=== PATIENT | male | born 1955 | race Caucasian/White ===

== ENCOUNTER 2024-12-26 06:19 | Emergency (ER) | payer MEDICARE, OTHER ==
[~2024-12-26] VITALS: Ht 180.3 cm; Wt 82.7 kg
[2024-12-26 06:37] VITALS: TEMP 97.1
[2024-12-26] MEDS: ASPIRIN 81 MG CHEWABLE TABLET PO ONE (07:00)
[2024-12-26] MEDS: TAMSULOSIN HCL 0.4 MG CAPSULE PO ONE (07:00)
[2024-12-26] MEDS: FOLIC ACID 1 MG TABLET PO ONE (07:00)
[2024-12-26] MEDS: LISINOPRIL 10 MG TABLET PO ONE (07:00)
[2024-12-26] MEDS: CYANOCOBALAMIN 500 MCG TABLET PO ONE (07:08)
[2024-12-26] MEDS: BuPROPion HCL XL 150 MG ER TABLET PO ONE (07:09)
[2024-12-26] MEDS: FLUoxetine HCL 20 MG CAPSULE PO ONE (07:09)
[2024-12-26 07:33] LABS: BASOPHILS % (AUTO) 0.4 % (0.0-2.0); EOSINOPHILS % (AUTO) 1.8 % (1.0-6.0); HEMATOCRIT 36.7 % (41-53); HEMOGLOBIN 12.6 g/dL (13.5-17.5); LYMPHOCYTES # (AUTO) 0.6 K/uL (1.0-4.8); LYMPHOCYTES % (AUTO) 9.9 % (22.0-44.0); MEAN CORPUSCULAR HEMOGLOBIN 28.9 pg (26.0-34.0); MEAN CORPUSCULAR HGB CONC 34.4 G/dL (31.0-37.0); MEAN CORPUSCULAR VOLUME 84 fL (80-100); MONOCYTES # (AUTO) 0.5 K/uL (0.1-1.0); MONOCYTES % (AUTO) 7.6 % (2.0-9.0); NEUTROPHILS # (AUTO) 4.8 K/uL (1.8-7.7); NEUTROPHILS % (AUTO) 80.3 % (40.0-70.0); PLATELET COUNT (AUTO) 348 K/uL (150-450); RED BLOOD CELL COUNT(AUTO) 4.37 MIL/uL (4.50-5.90)
[2024-12-26 07:41] LABS: ANION GAP 10 mmol/L (8-16); CALCIUM, TOTAL 9.2 mg/dL (8.8-10.5); CARBON DIOXIDE 25 mmol/L (22-29); CHLORIDE 95 mmol/L (98-107); GLOMERULAR FILTR. RATE CALC > 60 mL/min (>60); GLUCOSE,RANDOM 84 mg/dL (70-110); POTASSIUM 4.2 mmol/L (3.5-5.1); SODIUM SERUM 130 mmol/L (136-145); UREA NITROGEN, BLOOD 16 mg/dL (7-18)
[2024-12-26 07:51] LABS: TROPONIN I-HIGH SENSITIVITY 6 ng/L (<76)
[2024-12-26 08:00] LABS: ALCOHOL, BLOOD (SERUM) < 3 mg/dL (0-10)
[2024-12-26 12:54] VITALS: BP 111/73; PULSE 90; RESP 16; O2SAT 97
== END 2024-12-26 15:45 ==
LOC: EMS 06:21
DX: R26.89 Other abnormalities of gait and mobility (principal); R53.1 Weakness; I10 Essential (primary) hypertension; Q66.89 Other specified congenital deformities of feet; F32.9 Major depressive disorder, single episode, unspecified
CPT/HCPCS: 99284; 97161; 80048; 84484; 85025; G0480